=== PATIENT | female | born 1995 | race Two or more races ===

== ENCOUNTER 2016-08-02 15:10 | Emergency (ER) | payer OTHER ==
[~2016-08-02] VITALS: Ht 172.7 cm; Wt 70.8 kg
[~2016-08-02 15:10] MED LIST: BENTYL10 MG PO
[2016-08-02 16:17] LABS: HEMATOCRIT 38.1 % (36.0-46.0); MCH 31.4 PG (29.0-34.0); MCHC 34.9 G/DL (30.0-36.0); MCV 89.9 FL (83-99); MEAN PLAT.VOLUME 9.9 uM^3 (9.5-12.4); PLATELET COUNT 172 K/uL (156-360); RBC DIS.WIDTH-CV 12.5 % (11.8-14.6); RBC DIS.WIDTH-SD 41.4 % (39-53); RED BLOOD COUNT 4.24 M/uL (3.80-5.20); WHITE BLOOD COUNT 7.4 K/uL (4.1-10.2)
[2016-08-02 16:25] LABS: CHLORIDE 111 mEq/L (99-109); POTASSIUM 4.3 mEq/L (3.7-5.4); SODIUM 137 mEq/L (136-147)
[2016-08-02 16:27] LABS: GLUCOSE 85 mg/dL (70-99)
[2016-08-02 16:29] LABS: ANION GAP 6 MEQ/L (2-14)
[2016-08-02 16:31] LABS: GFR ESTIMATE (CALCULATED) > 59 mL/min/
[2016-08-02 16:32] LABS: UREA NITROGEN (BUN) 7 mg/dL (9-23)
[2016-08-02 16:39] LABS: QUANTITATIVE HCG < 4.0 MIU/ML
[2016-08-02 17:00] LABS: ADD MIUA? YES; BILIRUBIN NEGATIVE; BLOOD NEGATIVE; COLOR YELLOW ((YELLOW)); GLUCOSE (STRIP) NEGATIVE; KETONES NEGATIVE; LEUKOCYTES SMALL; NITRITE NEGATIVE; PROTEIN (STRIP) NEGATIVE; SPECIFIC GRAVITY 1.014 (1.000-1.030); UROBILINOGEN 0.2 MG/DL (0.2-1.0)
[2016-08-02 17:21] LABS: BACTERIA 2+ /HPF; CASTS NONE SEEN /LPF; CRYSTALS NONE SEEN; EPITHELIAL CELLS 2+ /HPF; MUCUS 1+ /LPF; RED BLOOD CELLS 0-5 /HPF (0-5)
[2016-08-02] MEDS ORDERED: KEFLEX500 MG PO (18:25)
[2016-08-02] MEDS ORDERED: INDOCIN50 MG PO (18:25)
[2016-08-02 18:41] VITALS: BP 99/63
== END 2016-08-02 18:43 | disposition home or self-care (01) ==
LOC: EME → EDBD 15:10 → EME 15:10
PROVIDERS: Physician Assistant
DX: N39.0 Urinary tract infection, site not specified (principal); D27.0 Benign neoplasm of right ovary; F17.200 Nicotine dependence, unspecified, uncomplicated; Z88.5 Allergy status to narcotic agent
CPT/HCPCS: 76856; 80048; 81003; 84702; 85027; 87086; 99281; 99284; J3010

== ENCOUNTER 2017-04-24 14:07 | Outpatient (CLI) | payer OTHER ==
[~2017-04-24] VITALS: Ht 172.7 cm; Wt 75.7 kg
[~2017-04-24 14:07] MED LIST changes: +INDOCIN50 MG PO; +KEFLEX500 MG PO
[2017-04-24 14:10] VITALS: BP 112/66
[2017-04-24 14:50] VITALS: BP 110/64
[2017-04-24] MEDS ORDERED: EXPECTA PRENAT1 EACH PO (15:49)
== END 2017-04-24 17:35 | disposition home or self-care (01) ==
LOC: EME 14:07 → EDSTATUS 14:20 → LDRP-OP 14:35 → 2WEST 14:36
DX: O99.282 Endocrine, nutritional and metabolic diseases complicating pregnancy, second trimester (principal); Z3A.22 22 weeks gestation of pregnancy; E86.0 Dehydration; K29.70 Gastritis, unspecified, without bleeding; G43.909 Migraine, unspecified, not intractable, without status migrainosus
CPT/HCPCS: 59025; G0378; J2405; J7120

== ENCOUNTER 2017-07-13 21:54 | Outpatient (CLI) | payer OTHER ==
[~2017-07-13] VITALS: Ht 172.7 cm; Wt 74.8 kg
[~2017-07-13 21:54] MED LIST changes: +EXPECTA PRENAT1 EACH PO
[2017-07-13 22:11] VITALS: BP 110/70
[2017-07-14] VITALS (25 sets, daily range): BP systolic 88–113; BP diastolic 50–74
[2017-07-14 03:08] LABS: SOURCE SWAB
[2017-07-14 03:13] LABS: AMPHETAMINE NEGATIVE (500 ng/mL); BARBITURATES NEGATIVE (200 ng/mL); BENZODIAZEPINES NEGATIVE (150 ng/mL); BUPRENORPHINE NEGATIVE (10 ng/mL); COCAINE NEGATIVE (150 ng/mL); METHADONE NEGATIVE (200 ng/mL); METHAMPHETAMINE NEGATIVE (500 ng/mL); OPIATES (MORPHINE) NEGATIVE (100 ng/mL); OXYCODONE NEGATIVE (100 ng/mL); PHENCYCLIDINE NEGATIVE (25 ng/mL); PROPOXYPHENE NEGATIVE (300 ng/mL); THC CANNABINOIDS PRESUMPTIVE POSITIVE (50 ng/mL); TRICYCLIC ANTIDEPRESSANTS NEGATIVE (300 ng/mL)
[2017-07-14 07:17] LABS: BASOPHIL (%) 0.1 % (0-1); EOSINOPHIL (%) 0 % (0-5); HEMOGLOBIN 10.5 G/DL (11.9-15.5); IMMATURE GRANULOCYTE (%) 0.4 % (0.0-0.7); LYMPHOCYTE (%) 11.8 % (15-42); LYMPHOCYTE COUNT 0.9 K/uL (1.0-2.8); MCH 33.2 PG (29.0-34.0); MCHC 36.2 G/DL (30.0-36.0); MCV 91.8 FL (83-99); MONOCYTE (%) 1.7 % (3-12); MONOCYTE COUNT 0.1 K/uL (0-0.8); NEUTROPHIL COUNT 6.5 K/uL (1.8-6.4); PLATELET COUNT 177 K/uL (156-360); RBC DIS.WIDTH-CV 12.9 % (11.8-14.6); RBC DIS.WIDTH-SD 42.8 % (39-53); RED BLOOD COUNT 3.16 M/uL (3.80-5.20); WHITE BLOOD COUNT 7.5 K/uL (4.1-10.2)
[2017-07-15] VITALS (8 sets, daily range): BP systolic 84–110; BP diastolic 50–63
[2017-07-15] MEDS ORDERED: NIFEDIPINE20 MG PO (09:23)
== END 2017-07-15 11:58 | disposition home or self-care (01) ==
LOC: LDRP-OP 21:54 → 2WEST 21:55 → LDRP-OP 09-27 17:57
PROVIDERS: Obstetrics & Gynecology
DX: O60.03 Preterm labor without delivery, third trimester (principal); Z3A.33 33 weeks gestation of pregnancy; O99.323 Drug use complicating pregnancy, third trimester; F12.90 Cannabis use, unspecified, uncomplicated; M54.5 Low back pain
CPT/HCPCS: 59025; 83735; 84999; 85025; 87077; 87081; 87086; 87186; 87480; 87491; 87510; 87591; 87660; G0378; J0702; J3475; J7120

== ENCOUNTER 2017-07-31 09:24 | Outpatient (CLI) | payer OTHER ==
[~2017-07-31 09:24] MED LIST changes: +NIFEDIPINE20 MG PO
[2017-07-31 09:35] VITALS: BP 111/70
== END 2017-07-31 15:10 | disposition home or self-care (01) ==
LOC: LDRP-OP 09:24 → 2WEST 09:25 → LDRP-OP 09-27 12:04
DX: O60.03 Preterm labor without delivery, third trimester (principal); Z3A.35 35 weeks gestation of pregnancy; Z87.891 Personal history of nicotine dependence
CPT/HCPCS: 59025; G0378

== ENCOUNTER 2017-08-04 15:48 | Inpatient (IN) | payer OTHER ==
[2017-08-04] VITALS (13 sets, daily range): BP systolic 106–127; BP diastolic 57–78
[2017-08-04 16:27] LABS: BASOPHIL (%) 0.1 % (0-1); EOSINOPHIL (%) 0.2 % (0-5); HEMATOCRIT 30.2 % (36.0-46.0); HEMOGLOBIN 10.6 G/DL (11.9-15.5); IMMATURE GRANULOCYTE (%) 0.4 % (0.0-0.7); LYMPHOCYTE (%) 13.9 % (15-42); LYMPHOCYTE COUNT 1.3 K/uL (1.0-2.8); MCH 32.3 PG (29.0-34.0); MCHC 35.1 G/DL (30.0-36.0); MCV 92.1 FL (83-99); MONOCYTE (%) 6.2 % (3-12); MONOCYTE COUNT 0.6 K/uL (0-0.8); NEUTROPHIL (%) 79.2 % (45-76); NEUTROPHIL COUNT 7.3 K/uL (1.8-6.4); PLATELET COUNT 177 K/uL (156-360); RBC DIS.WIDTH-CV 13.4 % (11.8-14.6); RBC DIS.WIDTH-SD 44.7 % (39-53); RED BLOOD COUNT 3.28 M/uL (3.80-5.20); WHITE BLOOD COUNT 9.2 K/uL (4.1-10.2)
[2017-08-04 18:46] LABS: AMPHETAMINE NEGATIVE (500 ng/mL); BARBITURATES NEGATIVE (200 ng/mL); BENZODIAZEPINES NEGATIVE (150 ng/mL); BUPRENORPHINE NEGATIVE (10 ng/mL); COCAINE NEGATIVE (150 ng/mL); METHADONE NEGATIVE (200 ng/mL); METHAMPHETAMINE NEGATIVE (500 ng/mL); OPIATES (MORPHINE) NEGATIVE (100 ng/mL); OXYCODONE NEGATIVE (100 ng/mL); PHENCYCLIDINE NEGATIVE (25 ng/mL); PROPOXYPHENE NEGATIVE (300 ng/mL); THC CANNABINOIDS PRESUMPTIVE POSITIVE (50 ng/mL); TRICYCLIC ANTIDEPRESSANTS NEGATIVE (300 ng/mL)
[2017-08-04] MEDS ORDERED: IBUPROFEN800 MG PO (22:26)
[2017-08-06 07:22] VITALS: BP 122/76
== END 2017-08-06 12:23 | disposition home or self-care (01) | DRG 775 ==
LOC: LDRP-OP 15:48 → 2WEST 15:49 → LDRP-OP 09-27 15:23
PROVIDERS: Advanced Practice Midwife
DX: O99.824 Streptococcus B carrier state complicating childbirth (principal); F33.9 Major depressive disorder, recurrent, unspecified; Z37.0 Single live birth; F41.9 Anxiety disorder, unspecified; O99.344 Other mental disorders complicating childbirth; O99.72 Diseases of the skin and subcutaneous tissue complicating childbirth; L30.9 Dermatitis, unspecified; F12.90 Cannabis use, unspecified, uncomplicated; Z3A.36 36 weeks gestation of pregnancy; O60.14X1 Preterm labor third trimester with preterm delivery third trimester, fetus 1; Z87.891 Personal history of nicotine dependence; O99.324 Drug use complicating childbirth; O69.81X1 Labor and delivery complicated by cord around neck, without compression, fetus 1; O36.5931 Maternal care for other known or suspected poor fetal growth, third trimester, fetus 1; O77.0 Labor and delivery complicated by meconium in amniotic fluid
CPT/HCPCS: 84999; 85025; C1755; J1200; J2540; J3010; J7120